=== PATIENT | female | born 2000 | race African-American/Black ===

== ENCOUNTER 2022-11-18 15:13 | Emergency (ER) | payer BC, OTHER ==
[~2022-11-18] VITALS: Ht 154.9 cm; Wt 68.6 kg
[2022-11-18 17:26] LABS: HEMATOCRIT 34.3 % (36.0-47.0); HEMOGLOBIN 10.7 g/dl (12.0-15.5); MEAN CORPUSCULAR HEMOGLOBIN 25.4 pg (27.0-33.0); MEAN CORPUSCULAR HGB CONC 31.2 g/dl (32.0-36.5); MEAN CORPUSCULAR VOLUME 81.3 fl (80.0-96.0); PLATELET COUNT, AUTOMATED 229 10^3/uL (150-450); RED BLOOD COUNT 4.22 10^6/uL (4.00-5.40); WHITE BLOOD COUNT 10.7 10^3/uL (4.0-10.0)
[2022-11-18 17:53] VITALS: BP 142/82
== END 2022-11-18 17:58 | disposition home or self-care (01) ==
LOC: M ED 16:31
DX: N93.9 Abnormal uterine and vaginal bleeding, unspecified (principal)

== ENCOUNTER 2023-02-21 18:24 | Emergency (ER) | payer BC ==
[~2023-02-21] VITALS: Ht 154.9 cm; Wt 70.5 kg
[2023-02-21] MEDS ORDERED: METOCLOPRAMIDE INJ 10MG/2ML VIAL IV ONE (19:15)
[2023-02-21] MEDS ORDERED: diphenhydrAMINE 50MG/ML VIAL IV ONE (19:15)
[2023-02-21] MEDS ORDERED: NS 1,000 ML IV ONE (19:15)
[2023-02-21] MEDS ORDERED: ACETAMINOPHEN 1000MG 100ML IV BAG IV ONE (19:15)
[2023-02-21 20:09] LABS: BASO % 0.1 % (0.0-1.0); EOS # 0.1 10^3/uL (0.0-0.5); EOS % 0.8 % (0.0-3.0); HEMATOCRIT 37.4 % (36.0-47.0); HEMOGLOBIN 11.6 g/dl (12.0-15.5); LYMPH # 1.9 10^3/uL (1.5-5.0); LYMPH % 16.1 % (24.0-44.0); MEAN CORPUSCULAR HEMOGLOBIN 24.8 pg (27.0-33.0); MEAN CORPUSCULAR VOLUME 79.9 fl (80.0-96.0); MONO # 0.9 10^3/uL (0.0-0.8); NEUTROPHILS # 8.7 10^3/uL (1.5-8.5); NEUTROPHILS % 74.7 % (36.0-66.0); PLATELET COUNT, AUTOMATED 208 10^3/uL (150-450); RED BLOOD COUNT 4.68 10^6/uL (4.00-5.40); WHITE BLOOD COUNT 11.6 10^3/uL (4.0-10.0)
[2023-02-21 20:18] LABS: BLOOD UREA NITROGEN 13 MG/DL (9-23); CALCIUM LEVEL 8.4 MG/DL (8.5-10.1); CARBON DIOXIDE LEVEL 24 MMOL/L (20-31); CHLORIDE LEVEL 108 MMOL/L (98-107); CREATININE FOR GFR 0.62 MG/DL (0.55-1.30); GLOMERULAR FILTRATION RATE > 60.0 (>60); GLUCOSE, FASTING 84 MG/DL (60-100); POTASSIUM SERUM 4.4 MMOL/L (3.5-5.1); SODIUM LEVEL 138 MMOL/L (136-145)
[2023-02-21 20:22] LABS: THYROID STIMULATING HORMONE 1.856 uIU/ML (0.55-4.78)
[2023-02-21 21:51] VITALS: BP 120/75
== END 2023-02-21 21:54 | disposition home or self-care (01) ==
LOC: M ED 18:24
DX: R51.9 Headache, unspecified (principal); Z33.1 Pregnant state, incidental
CPT/HCPCS: 36415; 80048; 84443; 84702; 85025; 87486; 87581; 87633; 87798; 96374; 96375; 99283; J0131; J1200; J2765